=== PATIENT | female | born 1985 | race Caucasian/White ===

== ENCOUNTER 2017-03-04 13:17 | Emergency (ER) | payer BC ==
[~2017-03-04] VITALS: Ht 167.6 cm; Wt 115.7 kg
[~2017-03-04 13:17] MED LIST: ASPIRIN 81MG TA81 MG PO; HYDROMORPHONE2 MG PO; LEVOTHYROXINE0.3 M1 PO; LOVENOX 3030 MG/0.1 IJ; PREDNISONE 20MG20 MG PO; PRENATAL MULTI1 EAC3 PO; RANITIDINE 150150 MG PO; SYNTHROID0.025 MG PO; ZITHROMAX Z PA250 MG PO
--- OUTSIDE RECORDS SUMMARY | 2017-03-04 13:23 | External Medical Summary Rpt | CCD ---
Author Author , JORDI BACON Address Unknown Phone [email or web address] Purpose Continuity of Care Document - 08-22-2012 through 2016 Results Labs Lab Lab Date Result Refere Interp Status Commen Order Detail nces retati t Range on Blood type & Indirect antibody screen panel in Blood (11-12-2016 06:00) Blood NEGATIV NEGATIV complet group 017 E E ed antibod 06:00 y screen [Presen ce] in Serum or Plasma Rh POSITIV complet [Type] 017 E ed in 06:00 Blood ABO O complet group 017 ed [Type] 06:00 in Blood
--- OUTSIDE RECORDS SUMMARY | 2017-03-04 13:23 | External Medical Summary Rpt | CCD ---
Author Author [employer] Organization [employer] Address Unknown Phone Unavailable Purpose Continuity of Care Document - through 2016
--- OUTSIDE RECORDS SUMMARY | 2017-03-04 13:23 | External Medical Summary Rpt | CCD ---
Author Author , JORDI BACON Address Unknown Phone [email or web address] Purpose Continuity of Care Document - 08-22-2012 [...]
--- OUTSIDE RECORDS SUMMARY | 2017-03-04 13:24 | External Medical Summary Rpt | CCD ---
Demographics Preferred Language Persian Marital Status Unknown Shinto Affiliation Unknown Race Unknown Ethnic Group Unknown Author Author , JORDI BACON Address Unknown Phone Immunization No patient found.
--- OUTSIDE RECORDS SUMMARY | 2017-03-04 13:24 | External Medical Summary Rpt ---
Author Author GUEVARAYESENIA Hargrove, [employer] Organization [employer] Address Unknown Phone Unavailable Results Hemoglobin & Hematocrit panel in Blood Observa Value Referen Units Interpr Notes Date tion ce etation Range Hematocri 37.0 - % Normal No Nov 13 t [Volume 47.0 informati 2016 6:30 on in AM Fraction] source of Blood data Hemoglobi 12.2 - g/dL Low No Nov 13 n 16.2 informati 2016 6:30 [Mass/vol on in AM ume] in source Blood data pH of Cord blood Observa Value Referen Units Interpr Notes Date ti ce etation Range pH of 7.35 - No Low No Nov 12 Cord 7.45 informati informati 2016 8:10 blood on in on in AM source source data data Blood type & Indirect antibody screen panel in Blood Observa Value Referen Units Interpr Notes Date ti ce etation Range Blood NEGATIV NEGATIV No No No Nov 12 group E E informa informa informa 2016 antibod tion in tion in tion in 6:00 AM y source source source screen data data data [Presen ce] in Serum or Plasma Rh POSITIV No No No No Nov 12 [Type] E informa informa informa informa 2016 in tion in tion in tion in tion in 6:00 AM Blood source source source source data data data data ABO O No No No No Nov 12 group informa informa informa informa 2016 [Type] tion in tion in tion in tion in 6:00 AM in source source source source Blood data data data data CBC W Auto Differential panel in Blood Observa Value Referen Units Interpr Notes Date tion ce etation Range Basophils 0 - 0.2 K/MM3 Normal No Nov 12 informati 2016 6:00 [#/volume on in AM ] in source Blood by data Automated count Basophils 0.1 - 2.0 % Normal No Nov 12 / informati 2016 6:00 leukocyte on in AM s in source Blood by data Automated count Eosinophi 0.0 - 0.4 K/mm3 Normal No Nov 12 ls informati 2016 6:00 [#/volume on in AM ] in source Blood by data Automated count Eosinophi 0.1 - % Normal No Nov 12 ls/100 12.0 informati 2016 6:00 leukocyte on in AM s in source Blood by data Automated count Granulocy 1.8 - 7.8 K/mm3 High No Nov 12 [place] informati 2016 6:00 [#/volume on in AM ] in source Blood by data Automated count Granulocy 37.0 - % High No Nov 12 [place]/100 80.0 informati 2016 6:00 leukocyte on in AM s in source Blood by data Automated count Hematocri 37.0 - % Normal No Nov 12 t [Volume 47.0 informati 2016 6:00 on in AM Fraction] source of Blood data Hemoglobi 12.2 - g/dL Normal No Nov 12 n 16.2 informati 2016 6:00 [Mass/vol on in AM ume] in source Blood data Lymphocyt 0.7 - 4.5 K/mm3 Normal No Nov 12 es informati 2016 6:00 [#/volume on in AM ] in source Unspecifi data ed specimen by Automated count Lymphocyt 10 - 50.0 % Normal No Nov 12 es informati 2016 6:00 [#/volume on in AM ] in source Unspecifi data ed specimen by Automated count Erythrocy 27 - 31.2 pg Low No Nov 12 te mean informati 2016 6:00 corpuscul on in AM ar source hemoglobi data n [Entitic mass] Erythrocy 31.8 - g/dl Normal No Nov 12 te mean 35.4 informati 2016 6:00 corpuscul on in AM ar source hemoglobi data n concentra tion [Mass/vol ume] by Automated count Erythrocy 82.2 - fl Low No Nov 12 te mean 97.8 informati 2016 6:00 corpuscul on in AM ar volume source [Entitic data volume] by Automated count Monocytes 0.1 - 1.0 K/mm3 Normal No Nov 12 informati 2016 6:00 [#/volume on in AM ] in source Blood by data Automated count Monocytes 1.7 - 9.3 % Normal No Nov 12 / informati 2016 6:00 leukocyte on in AM s in source Blood by data Automated count Platelet 7.4 - fl Low No Nov 12 mean 10.4 informati 2016 6:00 volume on in AM [Entitic source volume] data in Blood by Automated count Platelets 142 - 424 K/mm3 Normal No Nov 12 informati 2017 6:00 [#/volume on in AM ] in source Blood data Erythrocy 4.2 - 5.4 M/mm3 Normal No Nov 12 [place] informati 2016 6:00 [#/volume on in AM ] in source Amniotic data fluid Erythrocy 11.5 - % Normal No Nov 12 te 17.5 informati 2016 6:00 distribut on in AM ion width source [Entitic data volume] by Automated count Leukocyte 4.8 - K/MM3 High No Nov 12 s 10.8 informati 2016 6:00 [#/volume on in AM ] in source Blood data Basic metabolic panel in Blood Observa Value Referen Units Interpr Notes Date tion ce etation Range Urea 7 - 18 mg/dL Normal No Nov 12 nitrogen informati 2016 6:00 [Mass/vol on in AM ume] in source Serum or data Plasma Calcium 8.5 - mg/dL Normal No Nov 12 [Mass/vol 10.1 informati 2016 6:00 ume] in on in AM Serum or source Plasma data Chloride 98 - 107 mmoL/L Normal No Nov 12 [Moles/vo informati 2016 6:00 lume] in on in AM Serum or source Plasma data Carbon 21.0 - mmoL/L Normal No Nov 12 dioxide, 32.0 informati 2016 6:00 total on in AM [Moles/vo source lume] in data Serum or Plasma Creatinin 0.55 - mg/dL Normal No Nov 12 e 1.02 informati 2016 6:00 [Mass/vol on in AM ume] in source Serum or data Plasma Creatinin 50 - 200 ML/MIN High No Nov 12 e renal informati 2016 6:00 clearance on in AM source predicted data by Cockcroft -Gault formula Estimated 59- ML/MIN No REFERENCE Nov 12 informati RANGE: 2017 6:00 glomerula on in >60 AM r source ML/MIN/1. filtratio data 73 SQUARE n rate METERSIf (GF this patient is -A merican, then multiply theresult by 1.210. Glucose 74 - 106 mg/dL High No Nov 12 [Mass/vol informati 2017 6:00 ume] in on in AM Serum or source Plasma data Potassium 3.5 - 5.1 mmoL/L Normal No Nov 12 informati 2016 6:00 [Moles/vo on in AM lume] in source Serum or data Plasma Sodium 136 - 145 mmoL/L Normal No Nov 12 [Moles/vo informati 2016 6:00 lume] in on in AM Serum or source Plasma data Chlamydia/GC Amplification Observa Value Referen Units Interpr Notes Date tion ce etation Range Chlamyd Negativ Negativ No No No September 06 ia e e informa informa informa 2017 trachom tion in tion in tion in 7:10 PM atis source source source rRNA data data data [Presen ce] in Unspeci fied specime n by Probe & target amplifi cation method Neisser Negativ Negativ No No Perform September 06 ia e e informa informa ed at: 2017 gonorrh tion in tion in CB - 7:10 PM oeae source source [facility] rRNA data data [Presen [place] ce] in [address], [place], [place] Probe & [id number] target 69Lab Directo amplifi r: cation Vincent method Brad ti PhD, Phone: [phone] Amylase [Enzymatic activity/volume] in Serum or Plasma Observa Value Referen Units Interpr Notes Date ti ce etation Range Amylase 25 - 115 U/L Normal No September 06 [Enzymati informati 2016 7:00 c on in PM activity/ source volume] data in Serum or Plasma Comprehensive metabolic 2000 panel in Serum or Plasma Observa Value Referen Units Interpr Notes Date ti ce etation Range Albumin/G 1.1 - 1.8 No Low No September 06 lobulin informati informati 2016 7:00 [Mass on in on in PM ratio] in source source Serum or data data Plasma Albumin 3.4 - 5.0 gm/dL Low No September 06 [Mass/vol informati 2016 7:00 ume] in on in PM Serum or source Plasma data Alkaline 46 - 116 U/L High No September 06 phosphata informati 2016 7:00 se on in PM [Enzymati source c data activity/ volume] in Serum or Plasma Bilirubin 0.2 - 1.0 mg/dL Normal No September 06 .total informati 2017 7:00 [Mass/vol on in PM ume] in source Serum or data Plasma Urea 7 - 18 mg/dL Low No September 06 nitrogen informati 2016 7:00 [Mass/vol on in PM ume] in source Serum or data Plasma Calcium 8.5 - mg/dL Normal No September 06 [Mass/vol 10.1 informati 2016 7:00 ume] in on in PM Serum or source Plasma data Chloride 98 - 107 mmoL/L Normal No September 06 [Moles/vo informati 2016 7:00 lume] in on in PM Serum or source Plasma data Carbon 21.0 - mmoL/L Normal No September 06 dioxide, 32.0 informati 2016 7:00 total on in PM [Moles/vo source lume] in data Serum or Plasma Creatinin 0.55 - mg/dL Normal No September 06 e 1.02 informati 2016 7:00 [Mass/vol on in PM ume] in source Serum or data Plasma Creatinin 50 - 200 ML/MIN High No September 06 e renal informati 2016 7:00 clearance on in PM source predicted data by Cockcroft -Gault formula Estimated 59- ML/MIN No REFERENCE September 06 informati RANGE: 2017 7:00 glomerula on in >60 PM r source ML/MIN/1. filtratio data 73 SQUARE n rate METERSIf (GF this patient is -A merican, then multiply theresult by 1.210. Globulin 1.3 - 3.2 gm/dL High No September 06 [Mass/vol informati 2016 7:00 ume] in on in PM Serum source data Glucose 74 - 106 mg/dL Normal No September 06 [Mass/vol informati 2016 7:00 ume] in on in PM Serum or source Plasma data Potassium 3.5 - 5.1 mmoL/L Low September 06 2016 7:00 [Moles/vo CRITICAL PM lume] in RESULTS Serum or Plasma RESU LTS CALLED TO: Ailin LAMB RN 09/06/161922 Emani Choudhary Sodium 136 - 145 mmoL/L Normal No September 06 [Moles/vo informati 2016 7:00 lume] in on in PM Serum or source Plasma data Aspartate 15 - 37 U/L Low No September 062016 7:00 aminotran on in PM sferase source [Enzymati data c activity/ volume] in Serum or Plasma Alanine 12 - 78 U/L Normal No September 06 aminotran 2016 7:00 sferase on in PM [Enzymati source c data activity/ volume] in Serum or Plasma Protein 6.4 - 8.2 gm/dL Normal No September 06 [Mass/vol 2016 7:00 ume] in on in PM Serum or source Plasma data Lipase [Enzymatic activity/volume] in Serum or Plasma Observa Value Referen Units Interpr Notes Date tion ce etation Range Lipase 73 - 393 U/L Low No September 06 [Enzymati 2016 7:00 c on in PM activity/ source volume] data in Serum or Plasma CBC W Auto Differential panel in Blood Observa Value Referen Units Interpr Notes Date ti ce etation Range Basophils 0 - 0.2 K/MM3 Normal No September 062016 7:00 [#/volume on in PM ] in source Blood by data Automated count Basophils 0.1 - 2.0 % Normal No September 062016 7:00 leukocyte on in PM s in source Blood by data Automated count Eosinophi 0.0 - 0.4 K/mm3 Normal No September 06 ls 2016 7:00 [#/volume on in PM ] in source Blood by data Automated count Eosinophi 0.1 - % Normal No September 06 ls/100 12.0 inform2016 7:00 leukocyte on in PM s in source Blood by data Automated count Granulocy 1.8 - 7.8 K/mm3 High No September 06 [place] 2016 7:00 [#/volume on in PM ] in source Blood by data Automated count Granulocy 37.0 - % High No September 06 [place]/100 80.0 2016 7:00 leukocyte on in PM s in source Blood by data Automated count Hematocri 37.0 - % Normal September 06 t [Volume 47.0 2016 7:00 on in PM Fraction] source of Blood data Hemoglobi 12.2 - g/dL Low No September 06 n 16.2 2016 7:00 [Mass/vol on in PM ume] in source Blood data Lymphocyt 0.7 - 4.5 K/mm3 Normal No September 06 es 2016 7:00 [#/volume on in PM ] in source Unspecifi data ed specimen by Automated count Lymphocyt 10 - 50.0 % Normal No September 06 es 2016 7:00 [#/volume on in PM ] in source Unspecifi data ed specimen by Automated count Erythrocy 27 - 31.2 pg Low No September 06 te mean inform2016 7:00 corpuscul on in PM ar source hemoglobi data n [Entitic mass] Erythrocy 31.8 - g/dl Low No September 06 te mean 35.4 informati 2016 7:00 corpuscul on in PM ar source hemoglobi data n concentra tion [Mass/vol ume] by Automated count Erythrocy 82.2 - fl Low No September 06 te mean 97.8 informati 2016 7:00 corpuscul on in PM ar volume source [Entitic data volume] by Automated count Monocytes 0.1 - 1.0 K/mm3 Normal No September 062016 7:00 [#/volume on in PM ] in source Blood by data Automated count Monocytes 1.7 - 9.3 % Normal No September 06 /100 inform2016 7:00 leukocyte on in PM s in source Blood by data Automated count Platelet 7.4 - fl Low No September 06 mean 10.4 informati 2016 7:00 volume on in PM [Entitic source volume] data in Blood by Automated count Platelets 142 - 424 K/mm3 Normal No September 062016 7:00 [#/volume on in PM ] in source Blood data Erythrocy 4.2 - 5.4 M/mm3 Normal No September 06 [place] 2016 7:00 [#/volume on in PM ] in source Amniotic data fluid Erythrocy 11.5 - % Normal No September 06 te 17.5 informati 2016 7:00 distribut on in PM ion width source [Entitic data volume] by Automated count Leukocyte 4.8 - K/MM3 High No September 06 s 10.8 informati 2016 7:00 [#/volume on in PM ] in source Blood data UPREG Observa Value Referen Units Interpr Notes Date tion ce etation Range UPREG NEGATIV . No Normal No Mar 14 E informa informa 2014 tion in tion in 7:31 AM source source data data FOREARM AP\\T\\LAT RIGHT Observa Value Referen Units Interpr Notes Date tion ce etation Range SAMMAN, No No No No August 22 informa informa informa informa 2012 [place] tion in tion in tion in tion in 1:04 AM \\.br\\BA source source source source OZIEL, data data data data BRENDA BARNEY\\ .br\\\\.b r\\EXAM DESCRIP TION: FOREARM AP LAT RIGHT28 [id number]\\ .br\\ FINAL REPORT- ELECTRO NICALLY SIGNED \\ .br\\\\.b r\\ACCES SHAUN #[id number]\\.br\\\\ .br\\\\.b r\\EXAM: AP and lateral radiogr aph right forearm August 22, 2012 12:58:0 0 AM\\.br\\ \\.br\\AC CESSION : [id number] \\.br\\\\. br\\EXAM REASON: RT ARM PAIN\\.b r\\\\.br\\ COMPARI SON: None\\.b r\\\\.br\\ TECHNIQ UE: AP and lateral radiogr aphs of the right forearm were obtaine d.\\.br\\ \\.br\\FI NDINGS: No acute fractur es or disloca tions are identif ied. No radiopa que\\.br \\foreig n bodies are seen within the soft tissues . There is no obvious soft\\.b r\\tissu e swellin g or defect. \\.br\\\\. br\\IMPR ESSION: \\.br\\\\. br\\No evidenc e of acute fractur e or disloca tion.\\. br\\\\.br \\"I, the attendi /[facility], have persona lly reviewe d, discuss ed,\\.br \\and supervi sed this radiolo gical examina tion with the residen t and this\\.b r\\repor t reflect s my agreeme nt."\\.b r\\ WRIST AP/LAT/OBLIQ RIG Observa Value Referen Units Interpr Notes Date tion ce etation Range JUNIOR, No No No No August 22 informa informa informa informa 2012 [place] tion in tion in tion in tion in 1:03 AM \\.br\\BA source source source source OZIEL, data data data data BRENDA ECTOR\\ .br\\\\.b r\\EXAM DESCRIP TION: WRIST AP/LAT/ OBLIQ [id number] 1991\\.b r\\ FINAL REPORT- ELECTRO NICALLY SIGNED \\ .br\\\\.b r\\ACCES SHAUN #[id number]\\.br\\\\ .br\\\\.b r\\EXAM: 3-view radiogr aph right wrist August 22, 2012 12:58:0 0 AM\\.br\\ \\.br\\AC CESSION : [id number] \\.br\\\\. br\\EXAM REASON: RT ARM PAIN\\.b r\\\\.br\\ COMPARI SON: None\\.b r\\\\.br\\ TECHNIQ UE: AP, lateral , and oblique views of the right wrist were\\.b r\\obtai yovani.\\.b r\\\\.br\\ FINDING S: No acute fractur es or disloca tions are identif ied. No radiopa que\\.br \\foreig n bodies are seen within the soft tissues . There is no obvious soft\\.b r\\tissu e swellin g or defect. \\.br\\\\. br\\IMPR ESSION: \\.br\\\\. br\\No evidenc e of acute fractur e or disloca tion.\\. br\\\\.br \\"I, the attendi /[facility], have persona cristophery reviewe d, discuss ed,\\.br \\and supervi sed this radiolo gical examina tion with the residen t and this\\.b r\\repor t reflect s my agreeme nt."\\.b r\\
--- OUTSIDE RECORDS SUMMARY | 2017-03-04 13:24 | External Medical Summary Rpt | CCD ---
Demographics Preferred Language Croatian Marital Status Unknown Protestant Affiliation Unknown Race Unknown Ethnic Group Unknown Author Author , JORDI BACON Address Unknown Phone Immunization No patient found.
--- OUTSIDE RECORDS SUMMARY | 2017-03-04 13:24 | External Medical Summary Rpt ---
[...] data [Presen [place] ce] in [address], [place], [place] Probe & [id number] target 69Lab Directo amplifi r: cation Vincent method Brad ti PhD, Phone: [phone] Amylase [Enzymatic activity/volume] in Serum or Plasma [...] r\\EXAM DESCRIP TION: FOREARM AP LAT RIGHT28 [id number]\\ .br\\ FINAL REPORT- ELECTRO NICALLY SIGNED \\ .br\\\\.b r\\ACCES SHAUN #[id number] 7\\.br\\\\ .br\\\\.b r\\EXAM: AP and lateral radiogr aph right forearm August 22, 2012 12:58:0 0 AM\\.br\\ \\.br\\AC CESSION : [id number] \\.br\\\\. br\\EXAM REASON: RT ARM PAIN\\.b r\\\\.br\\ [...] or disloca tion.\\. br\\\\.br \\"I, the attendi /[facility], have persona [...] .br\\\\.b r\\EXAM DESCRIP TION: WRIST AP/LAT/ OBLIQ [id number] 1991\\.b r\\ FINAL REPORT- ELECTRO NICALLY SIGNED \\ .br\\\\.b r\\ACCES SHAUN #[id number]\\.br\\\\ .br\\\\.b r\\EXAM: 3-view radiogr aph right wrist August 22, 2012 12:58:0 0 AM\\.br\\ \\.br\\AC CESSION : [id number] \\.br\\\\. br\\EXAM REASON: RT ARM PAIN\\.b r\\\\.br\\ [...] or disloca tion.\\. br\\\\.br \\"I, the attendi /[facility], have persona cristophery reviewe d, discuss ed,\\.br \\and supervi sed this radiolo gical examina tion with the residen t and this\\.b r\\repor t reflect s my agreeme nt."\\.b r\\
[2017-03-04] MEDS ORDERED: AUGMENTIN 875-1 EACH PO (14:25)
[2017-03-04] MEDS ORDERED: IPRATROPIUM BROM3 M1 IH (14:26)
--- NOTE | 2017-03-04 14:26 | [facility]gent Treatment Center Report ---
History of Present Issue Date/Time Seen by Provider 03/04/17 1320 Visit Reason Pt arrived:Walked Presenting Problem:COUGH, CHEST CONGESTION, FEVER. SOA. N Location if Accident: Onset of symptoms date/time:02/25/1712/04/999 or onset unknown for: Have you (or family members/close friends) recently traveled outside the [place]? N If Yes, where/when: Have you had exposure to infectious disease within the past month? TB? Other? Specify: c/o productive cough, SOA, fever. Started w/ head cold one week ago. Quickly moved into chest and feels cough, SOA getting worse today. Fever 101 new today and prompted visit to rule out pneumonia. Albuterol helps "briefly" with SOA. Not sure about wheezing. 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 Ibuprofen on arrival for fever while waiting to be seen. Little to no improvement with cough drops. Hasn't taken or tried anything else due to . Source patient Exam Limitations no limitations ALLERGIES Coded Allergies: metoclopramide (From REGLAN) (Mild, 11/12/16) sulfamethoxazole (From BACTRIM) (Mild, 11/12/16) trimethoprim (From BACTRIM) (Mild, 11/12/16) Home Medications Reported Medications Levothyroxine Sodium (Synthroid 0.025MG) 0.025 MG PO DAILY Pnv No.122/Iron/Folic Acid ( Multi Tablet) 1 EACH PO DAILY Levothyroxine Sodium (Levothyroxine 0.3MG TAB) 0.3 MG PO DAILY #30 TAB RANITIDINE HCL (Ranitidine HCl) 150 MG PO BID #60 TAB History Medical History General CAD? No Angina: No [place]: No Hypertension? No Hyperlipidemia? No CHF? No DVT? No PE? No COPD? No Asthma? No Anemia? No GERD? No Gastric ulcers? No GI Bleed? No Hernia? No Thyroid Problems? Yes Hypothyroidism? Yes CVA? No Seizures? No Diabetes? No Renal Insuffiency? No UTI? No Stones? No BPH? No GB Disease: No Nephritic Syndrome? No Asplenia? No Hepatitis? No Sickle Cell Disease? No Arthritis? No Migraines? No Cataracts? No Glaucoma? No MRSA? No HIV? No TB? No Anxiety? No Depression? No Cancer? No More? 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 denies: ear pain, throat pain. Respiratory see HPI Cardiovascular denies chest pain, denies palpitations Gastrointestinal denies no symptoms reported Musculoskeletal joint pain (new today w/ fever) Skin denies rash Psychiatric/Neurological denies headache Physical Exam Vital Signs Vital Signs Date Time Temp Pulse Resp B/P Pulse O2 O2 Flow FiO2 Ox Delivery Rate 03/04 1428 98.6 84 20 108/73 96 03/04 1323 101.2 96 20 112/74 92 General Appearance normal appearance, no apparent distress Eye Exam - bilateral eye normal exam Ear, Nose, Throat normal ENT inspection Neck non-tender, supple Respiratory Status Yes: trachea midline, chest symmetrical, non tender chest, non productive cough (worse with deep breathing). No: respiratory distress, use of accessory muscles , pain on inspiration, pain on expiration. Lung Sounds bilateral: lungs clear. Cardiovascular regular rate/rhythm, no peripheral edema, no murmur Neurologic alert, oriented x 3 Mental status normal mood/affect Skin normal color, warm/dry Lymphatic no adenopathy Medical Decision Making LABS/Meds/Orders Pt receiving controlled substance in ED? No Results/Orders Current Medication Orders Sig/Julian Start time Last Medication Dose Route Stop Time Status Admin Ceftriaxone Sodium 1 GM ONCE ONE 03/04 1415 DC 03/04 IM 03/04 1416 1417 Lidocaine HCl 0 ONCE ONE 03/04 1415 DC 03/04 IM 03/04 1416 1417 Lidocaine HCl 0 .STK-MED ONE 03/04 1413 DC .ROUTE Ceftriaxone Sodium 0 .STK-MED ONE 03/04 1412 DC .ROUTE Albuterol/Ipratropium 3 ML ONCE ONE 03/04 1400 DC 03/04 INH 03/04 1401 1359 Albuterol/Ipratropium 0 .STK-MED ONE 03/04 1357 DC INH Orders Procedure Date/time Status RT REQUEST DUONEB 03/04 7581 Active XRAY/CT/US XRAY/CT/US XRAY chest XR interpretation by reviewed by me (w/ Dr. Vigil, ER ) Xray Results Lower lobe infiltrate seen only on lateral view by Dr. Vigil, he rvwd w/ radiologist, confirm suspicious for infiltrate Comment Dr. Vigil knows pt. Discussed treatment w/ patient directly. Initially recommended amoxicillin when CXR was thought to be clear. Pt refused. "Takes too long to work". He then suggested azithromycin. Pt refused. "That never works and I have one 3-4 weeks ago". Once he discussed CXR w/ radiologist, recommended rocephin injection and augmentin. pt agreeable to this POC. Progress [facility] Progress Notes Date 03/04/17 Time 1410 Comment SOA improved w/ duoneb Departure Departure Time of Disposition 1417 Disposition DC Home or Self Care(routine) Clinical Impression Primary Impression: Pneumonia Qualifiers: Pneumonia type: due to unspecified organism Laterality: unspecified laterality Lung location: lower lobe of lung Qualified Code: J18.1 - Lobar pneumonia, unspecified organism Condition STABLE Referrals NISHANT ESTES (Family) IMMEDIATELY for new or worsening symptoms OR no noticeable improvement over the next 48-72 hours. Follow up to ensure xray returns to normal. 911 for difficulty breathing. Patient Instructions DI for Pneumonia -- Adult Additional Instructions * start antibiotic tomorrow. Rocephin today. Be sure to complete entire prescription even if feeling better. * Monitor Temp. Tylenol every 4 hours as needed no more then 5 times a day or 4000mg in 24 hours and/or ibuprofen every 6 hours as needed no more then 3200mg in 24 hours (as long as your primary care doctor has told you that it is ok to take both) for fever/aches/pain. ER if fever no less than 101 despite tylenol and ibuprofen * humidifier/vaporizer/hot steamy shower * Inhaler or Neb every 4-6 hours as needed like we discussed. If unsure how to use it, ask pharmacist to demonstrate how. Should help open airways and improve cough, wheezing, shortness of breath. * Mucinex during the day for your cough and cough suppressant only at night. Be sure to drink lots of water. Insurance may not cover a prescription of mucinex. Might be cheaper to get 400mg tablets and take 2 tablets morning, midday and evening all with lots of water. * No steroids today due to . If you feel like you are getting worse or wheezing, be sure to follow up immediately. * Use caution with decongestants as these too can effect you milk supply Discharge Counseling Counseled pt/family regarding diagnosis, test results, medications/RX, home care, follow up needs Prescriptions Current Visit Scripts Amoxicillin/Potassium Clav (Augmentin 875-125 Tablet) 1 EACH PO BID #20 TAB ALBUTEROL-IPRATROPIUM (Iprat-Albut 0.5-3(2.5) MG/3 Ml) 3 ML IH Q4-6H PRN SOA, wheezing #1 BOX at 1954
[2017-03-04 14:28] VITALS: BP 108/73
--- NOTE | 2017-03-04 17:43 | RADIOLOGY REPORT PS360 ---
CHEST(2 VIEWS-NOT PORTABLE) HISTORY: Shortness of air with productive cough SOA ORDERING PHYSICIAN: DEREK VAUGHN APRN PATIENT AGE: 31 years COMPARISON: None available FINDINGS: The cardiomediastinal silhouette and pulmonary vascularity are within normal limits. There is increased density in the lung base posteriorly on the lateral view which may be due to an area of atelectasis or infiltrate. The remaining lungs are clear. No effusions or pneumothorax. No acute bony anomalies. IMPRESSION: Atelectasis or infiltrate in the lung base posteriorly.
== END 2017-03-04 14:29 | disposition home or self-care (01) ==
LOC: UTC 13:17
DX: J18.1 Lobar pneumonia, unspecified organism (principal); E03.9 Hypothyroidism, unspecified